=== PATIENT | female | born 1955 | race Caucasian/White ===

== ENCOUNTER → 2018-12-19 | Outpatient (CLI) | payer OTHER ==
[~2018-12-19] MED LIST: ADULT LOW DOSE81 MG PO; B-50 COMPLEX1 EAC1; CALCIUM PO; FISH OIL 1,0001 EAC5 PO; LEVOTHROID PO; NAPROSYN250 MG PO; PRILOSEC 20 MG20 MG PO
== END ==
LOC: CAT 11:37
DX: Z13.6 Encounter for screening for cardiovascular disorders (principal); E78.00 Pure hypercholesterolemia, unspecified; I25.10 Atherosclerotic heart disease of native coronary artery without angina pectoris